=== PATIENT | male | born 1945 | race Hispanic/Latino ===

== ENCOUNTER 2022-12-03 22:36 | Emergency (ER) | payer MEDICARE ==
[~2022-12-03] VITALS: Ht 165.1 cm; Wt 56.2 kg
[~2022-12-03 22:36] MED LIST: ENALAPRIL PO
[2022-12-03] MEDS ORDERED: ONDANSETRON HCL INJ 2MG/ML 2ML 2 MG/ML VIAL IV STA (22:58)
[2022-12-03] MEDS ORDERED: FENTANYL CITRATE/PF 100MCG/2 ML INJ IV ONE (23:00)
[2022-12-04] MEDS ORDERED: ETOMIDATE 2 MG/ML 10 ML INJ IV STA (00:42)
[2022-12-04] MEDS ORDERED: MIDAZOLAM HCL 2 MG/2 ML VIAL IV STA (00:42)
[2022-12-04] MEDS ORDERED: ETOMIDATE 40 MG/ 20ML VIAL IV ONE (00:44)
[2022-12-04] MEDS ORDERED: FENTANYL CITRATE/PF 100MCG/2 ML INJ IV ONE (00:45)
[2022-12-04] MEDS ORDERED: FENTANYL CITRATE/PF 100MCG/2 ML INJ ONE (00:45)
[2022-12-04] MEDS ORDERED: MIDAZOLAM HCL 2 MG/2 ML VIAL ONE (00:45)
[2022-12-04] MEDS ORDERED: ULTRAM 50MG50 MG PO (01:29)
[2022-12-04 02:12] VITALS: BP 136/85; PULSE 63; RESP 15; TEMP 98.5; O2SAT 99
== END 2022-12-04 02:10 | disposition home or self-care (01) ==
LOC: ER 22:45
DX: S82.842A Displaced bimalleolar fracture of left lower leg, initial encounter for closed fracture (principal); S43.085A Other dislocation of left shoulder joint, initial encounter; S80.212A Abrasion, left knee, initial encounter; W05.0XXA Fall from non-moving wheelchair, initial encounter; Y92.89 Other specified places as the place of occurrence of the external cause; I10 Essential (primary) hypertension; Z86.73 Personal history of transient ischemic attack (TIA), and cerebral infarction without residual deficits
CPT/HCPCS: 23655; 73020; 73030; 73060; 73562; 73610; 99284; J2250; J2405; J3010 ×2